=== PATIENT | male | born 1955 | race Caucasian/White ===

== ENCOUNTER 2023-01-07 12:45 | Inpatient (IN) | payer MEDICARE, BC ==
[~2023-01-07] VITALS: Ht 175.3 cm; Wt 81.7 kg
[~2023-01-07 12:45] MED LIST: ESOM20; HYDACE5 PO; IPRAOI INH; NAPR500 PO; TAMS.4ER PO
[2023-01-07 13:35] LABS: BASOPHILS ABSOLUTE AUTO 0.05 K/mm3 (0.00-0.23); BASOPHILS PERCENT AUTO 0 % (0-2); EOSINOPHILS ABSOLUTE AUTO 0.01 K/mm3 (0.00-0.68); EOSINOPHILS PERCENT AUTO 0 % (0-6); Hematocrit 44.3 % (37.0-53.0); Hemoglobin 14.8 g/dL (13.5-17.5); IMMATURE GRAN ABSOLUTE AUTO 0.16 K/mm3 (0.00-0.10); IMMATURE GRAN PERCENT AUTO 1 % (0-1); LYMPHOCYTES ABSOLUTE AUTO 1.78 K/mm3 (0.84-5.20); LYMPHOCYTES PERCENT AUTO 9 % (21-46); MONOCYTES ABSOLUTE AUTO 1.47 K/mm3 (0.16-1.47); MONOCYTES PERCENT AUTO 7 % (4-13); Mean Corpuscular HGB 31.6 pg (26.0-34.0); Mean Corpuscular HGB Conc 33.4 g/dL (31.5-36.5); Mean Corpuscular Volume 95 fL (80-100); Mean Platelet Volume 9.4 fL (9.1-12.4); NEUTROPHILS ABSOLUTE AUTO 17.34 K/mm3 (1.96-9.15); NEUTROPHILS PERCENT AUTO 83 % (41-73); Platelet Count 292 K/mm3 (150-400); RDW Coefficient Variation 12.8 % (11.7-14.2); RDW Standard Deviation 44.1 fL (35.1-46.3); Red Blood Cell Count 4.69 M/mm3 (4.30-5.90); White Blood Cell Count 20.81 K/mm3 (4.00-11.30)
[2023-01-07 14:00] LABS: Albumin, Blood 3.7 g/dL (3.4-5.0); Albumin/Globulin Ratio 1.2 (0.8-1.8); Bilirubin, Total 0.9 mg/dL (0.1-1.0); Bun/Creatinine Ratio 8.5 (12.0-20.0); Creatinine, Blood 2.24 mg/dL (0.60-1.20); Globulin, Blood 3.2 g/dL (2.2-4.0); Potassium, Blood 5.3 mmol/L (3.5-5.5); Total Protein, Blood 6.9 g/dL (6.4-8.2)
[2023-01-07 17:11] VITALS: BP 152/91
--- NOTE | 2023-01-07 18:54 | NUR ---
SHIFT SUMMARY PT A&OX4, VSS/RA, VLAD PO, DENIES NEED FOR PAIN MED - 08/07 AT THIS TIME, CT IN PLACE/SANG DRAINAGE/-20WALL SUX, FAMILY AT BEDSIDE. WILL REPORT TO ONCOMING NOC RN.
[2023-01-07 19:18] VITALS: BP 168/97
[2023-01-08 00:50] VITALS: BP 121/82
[2023-01-08 04:15] VITALS: BP 134/80
[2023-01-08 04:31] LABS: BASOPHILS ABSOLUTE AUTO 0.02 K/mm3 (0.00-0.23); BASOPHILS PERCENT AUTO 0 % (0-2); EOSINOPHILS PERCENT AUTO 0 % (0-6); Hematocrit 39.3 % (37.0-53.0); Hemoglobin 13.2 g/dL (13.5-17.5); IMMATURE GRAN ABSOLUTE AUTO 0.05 K/mm3 (0.00-0.10); IMMATURE GRAN PERCENT AUTO 0 % (0-1); LYMPHOCYTES PERCENT AUTO 12 % (21-46); MONOCYTES ABSOLUTE AUTO 1.17 K/mm3 (0.16-1.47); MONOCYTES PERCENT AUTO 10 % (4-13); Mean Corpuscular HGB 31.3 pg (26.0-34.0); Mean Corpuscular HGB Conc 33.6 g/dL (31.5-36.5); Mean Corpuscular Volume 93 fL (80-100); Mean Platelet Volume 9.1 fL (9.1-12.4); NEUTROPHILS ABSOLUTE AUTO 9.53 K/mm3 (1.96-9.15); NEUTROPHILS PERCENT AUTO 78 % (41-73); Platelet Count 220 K/mm3 (150-400); RDW Coefficient Variation 12.9 % (11.7-14.2); RDW Standard Deviation 43.8 fL (35.1-46.3); Red Blood Cell Count 4.22 M/mm3 (4.30-5.90); White Blood Cell Count 12.17 K/mm3 (4.00-11.30)
[2023-01-08 04:51] LABS: Albumin, Blood 3.4 g/dL (3.4-5.0); Albumin/Globulin Ratio 1.2 (0.8-1.8); Bilirubin, Total 1.1 mg/dL (0.1-1.0); Bun/Creatinine Ratio 16.4 (12.0-20.0); Calcium, Blood 8.6 mg/dL (8.5-10.1); Creatinine, Blood 1.71 mg/dL (0.60-1.20); Globulin, Blood 2.9 g/dL (2.2-4.0); Potassium, Blood 4.8 mmol/L (3.5-5.5); Total Protein, Blood 6.3 g/dL (6.4-8.2)
[2023-01-08 07:09] VITALS: BP 123/71
[2023-01-08] MEDS ORDERED: Prinivil10 MG PO (07:46)
--- NOTE | 2023-01-08 08:55 | NUR ---
SUMMARY PT DENIES SOB.MED X 1 PO FOR PAIN AND REFUSED FURTHER.ENC TAKING PAIN MEDS TO ALLOW PT TO MOVE MORE FREELY AND REPOSITION.CXR TAKEN THIS AM, BUT NO RESULTS YET.
--- NOTE | 2023-01-08 14:22 | NUR ---
DR. WONG CAME BY TODAY AT 1330 AND PUT THE PATIENT ON WATERSEAL. PATIENT IS TOLERATING IT WELL AND DENIES SOB OR CHEST PAIN. RIB PAIN IS BEING MANAGED WITH IV TORADOL AT THIS TIME. HE WAS A SBA TO THE BATHROOM AND BACK TO BED AND TOLERATED THAT WELL TOO WITH NO SOB OR CHEST PAIN. HE IS LAYING BACK IN BED WITH CALL LIGHT IN REACH. DAUGHTER AT BEDSIDE.
[2023-01-08 15:50] VITALS: BP 133/83
--- NOTE | 2023-01-08 15:58 | NUR ---
SHIFT SUMMARY: CHEST TUBE PATIENT IS A&OX4. VS ARE WNL AND IS ON 2L NC TO AIDE IN LUNG HEALING BUT EVEN ON RA HAS >90% OXYGEN SATS. HIS CHEST TUBE IS ON HIS LEFT ANTERIOR SIDE WITH GAUZE AND TEGADERM THAT IS INTACT. DR. WONG PUT THE PATIENT ON WATER SEAL AND HAS BEEN TOLERATING IT WELL. HE IS A SBA TO THE BATHROOM AND IS VOIDING. HIS CHEST TUBE STILL HAS RED OUTPUT IN THE COLLECTION CHAMBER OF THE OASIS. HE IS TOLERATING PO INTAKE. PATIENT CALLS APPROPRIATELY AND IS CURRENTLY LAYING IN BED WITH CALL LIGHT IN REACH. FAMILY AT BEDSIDE.
--- NOTE | 2023-01-08 16:40 | NUR ---
PATIENT AND FAMILY HAVE BEEN EDUCATED ON IGNITION SOURCES AND RISK OF INJURY WITH OXYGEN IN USE. BOTH PATIENT AND FAMILY HAVE VERBALIZED UNDERSTANDING OF EDUCATION AND HAD NO FURTHER QUESTIONS.
[2023-01-08 19:30] VITALS: BP 137/87
[2023-01-09 05:09] VITALS: BP 119/79
--- NOTE | 2023-01-09 05:31 | NUR ---
EOS NOTE: UNEVENTFUL NIGHT FOR PT. CHEST TUBE TO WATERSEAL, DRESSING C/D/I. EXPRESSED MILD DISCOMFORT OVERNIGHT, MEDICATED APPROPRIATELY. VSS. NO FURTHER COMPLAINTS AT THIS TIME.
[2023-01-09 06:59] VITALS: BP 131/81
--- NOTE | 2023-01-09 19:26 | NUR ---
PT HAS BEEN STABLE THIS SHIFT. CHEST XRAY THIS AM SHOWED IMPROVEMENT. CHEST TUBE REMAINS TO WATERSEAL WITH 20CC OUTPUT. PLAN TO DC TOMORROW. FAMILY GIVEN SCRIPTS TO FILL. PT HAS BEEN UP TO EDGE OF BED AND IS SBA IN ROOM WITH WALKER. TORADOL EFFECTIVE FOR PAIN. FAMILY AT BEDSIDE, ATTENTIVE. CALLS APPROPRIATELY NEEDED.
[2023-01-09 19:55] VITALS: BP 133/75
[2023-01-10 04:20] VITALS: BP 125/75
--- NOTE | 2023-01-10 05:05 | NUR ---
SHIFT SUMMARY VSS. POD3 FOR L LATERAL CHEST TUBE PLACEMENT, PLAN TO BE REMOVED TODAY. PT REMAINS ON RA, NO SOB OR INCREASE IN WOB NOTED. NO DRAINAGE NOTED IN THORAVENT. REMAINS ON WATERSEAL. LOW URINE OUTPUT NOTED, PT ENCOURAGED TO INCREASE ORAL FLUIDS. PT VOIDING W/O DIFFICULTY. NO BM NOTED. TOLLERATING PO ITNAKE W/O NV. PT MEDICATED FOR PAIN WITH TORADOL. NO ACUTE EVENTS NOTED T/O THE NIGHT. PLAN FOR PT TO D/C HOME TODAY. THE PATIENT IS RESTING, IN NO DISTRESS, CALL LIGHT IN REACH, NO IGNITION SOURCE IDENTIFIED
[2023-01-10 07:34] VITALS: BP 125/77
== END 2023-01-10 13:32 | disposition home or self-care (01) | DRG 982 ==
LOC: ER 12:45 → SURS 12:46
PROVIDERS: Student in an Organized Health Care Education/Training Program; ADMIT Surgery
PROC: 0W9B30Z Drainage of Left Pleural Cavity with Drainage Device, Percutaneous Approach (ICD-10-PCS; principal; 2023-01-07)
PROC: 0HQ2XZZ Repair Right Ear Skin, External Approach (ICD-10-PCS; 2023-01-07)
PROC: 0HQ1XZZ Repair Face Skin, External Approach (ICD-10-PCS; 2023-01-07)
PROC: 0DTJ4ZZ Resection of Appendix, Percutaneous Endoscopic Approach (ICD-10-PCS; 2023-01-07)
PROC: BW40ZZZ Ultrasonography of Abdomen (ICD-10-PCS; 2023-01-07)
DX: S27.2XXA Traumatic hemopneumothorax, initial encounter (principal); K35.891 Other acute appendicitis without perforation, with gangrene; S22.42XA Multiple fractures of ribs, left side, initial encounter for closed fracture; W11.XXXA Fall on and from ladder, initial encounter; S01.112A Laceration without foreign body of left eyelid and periocular area, initial encounter; S01.311A Laceration without foreign body of right ear, initial encounter; I10 Essential (primary) hypertension; I95.9 Hypotension, unspecified; S01.81XA Laceration without foreign body of other part of head, initial encounter; Z98.890 Other specified postprocedural states
CPT/HCPCS: 12013; 32551; 36415; 70450; 71045; 71046; 71260; 72125; 74177; 80053; 85025; 86850; 86900; 86901; 90471; 90714; 93005; 93010; 94760; 96361-59; 96365-59; 96375-59; 96376-59; 99291-25; A9270; J0690; J1170; J1650; J1885; J7120; Q9967